=== PATIENT | male | born 1960 | race Two or more races ===

== ENCOUNTER 2018-12-13 19:52 | Emergency (ER) | payer SELFPAY ==
[~2018-12-13] VITALS: Ht 167.6 cm; Wt 77.1 kg
[2018-12-13 21:00] VITALS: BP 143/88
--- NOTE | 2018-12-13 21:00 | NUR ---
ED Nurse Note: patient walked in ED c/o furuncul on his left buttocks. AAO x4, VSS at this time.
[2018-12-13] MEDS ORDERED: Bactrim-DS 1 tab ORAL ONE (21:30)
[2018-12-13] MEDS ORDERED: BACTRIM DS TAB1 EAC1 ORAL (21:37)
[2018-12-13] MEDS ORDERED: MUPIROCIN22 GM TOPIC (21:37)
--- NOTE | 2018-12-13 21:37 | Emergency Room Report ---
History of Present Illness General Chief Complaint: Skin Rash/Abscess Source: Patient, Medical Record Present Illness HPI Is a 58-year-old male with a history of hypertension diabetes. He presents with chief complaint of bug bite. He has an abscess to his left upper hip area. Onset for last 2 days. He tried squeezing it. Now with tenderness and low-grade fever. No nausea no vomiting no fever chills. Worse with palpation. No active drainage. Allergies: Coded Allergies: No Known Allergies (Unverified , 07/04/15) Patient History Past Medical History: see triage record, old chart reviewed, DM, HTN Past Surgical History: other Pertinent Family History: none Social History: Denies: smoking Immunizations: other Reviewed Nursing Documentation: PMH: Agreed; PSxH: Agreed Nursing Documentation-PMH Hx Hypertension: Yes Hx Diabetes: Yes Review of Systems Eye: Denies: eye pain, blurred vision ENT: Denies: ear pain, nose congestion, throat swelling Respiratory: Denies: cough, shortness of breath Cardiovascular: Denies: chest pain, palpitations Gastrointestinal: Denies: abdominal pain, diarrhea, nausea, vomiting Musculoskeletal: Denies: back pain, joint pain Skin: Denies: rash Neurological: Denies: headache, numbness Endocrine: Denies: increased thirst, increased urine Hematologic/Lymphatic: Denies: easy bruising All Other Systems: negative except mentioned in HPI Physical Exam Vital Signs Date Time Temp Pulse Resp B/P (MAP) Pulse Ox O2 Delivery O2 Flow Rate FiO2 12/13/18 20:43 98.4 84 16 143/88 95 Room Air vitals normal Sp02 EP Interpretation: reviewed, normal General Appearance: well appearing, no apparent distress, alert Head: normocephalic, atraumatic Eyes: bilateral eye PERRL, bilateral eye EOMI ENT: hearing grossly normal, normal pharynx Neck: full range of motion, supple, no meningismus Respiratory: chest non-tender, lungs clear, normal breath sounds Cardiovascular #1: regular rate, rhythm, no murmur Gastrointestinal: normal bowel sounds, non tender, no mass, no organomegaly, no bruit, non-distended Musculoskeletal: back normal, gait/station normal, normal range of motion Psychiatric: mood/affect normal Skin: warm/dry, other - Left hip: Indurated area of 3 cm with erythema. Central area of necrosis and eschar. Procedures Incision and Drainage Incision and Drainage : Consent: Verbal Site: left hip Blade Size: 11 I & D Procedure: betadine prep, sterile drapes applied Wound Location: lower extremity Anesthesia: 1% Lidocaine Volume Anesthetic (ccs): 3 Patient Tolerated: Well Complications: None Progress I made a 1 cm incision. small amount of purulent discharge expressed. loculated area broken up. pt tolerated procedure w/o problems. Medical Decision Making Diagnostic Impression: Primary Impression: Abscess of hip, left ER Course Patient with a superficial abscess. No evidence of deep infection or systemic spread. We'll discharge home. Last Vital Signs Date Time Temp Pulse Resp B/P (MAP) Pulse Ox O2 Delivery O2 Flow Rate FiO2 12/13/18 20:43 98.4 84 16 143/88 95 Room Air Status: improved Disposition: HOME, SELF-CARE Condition: Stable Scripts Mupirocin* (MUPIROCIN*) 22 Gm Oint...g. 1 APPLIC TOPIC THREE TIMES A DAY, #22 GM Prov: Theo Arceo MD 12/13/18 Trimethoprim/Sulfamethoxazole 160/800* (BACTRIM DS TABLET*) 1 Each Tablet 1 TAB ORAL Q12H, #14 TAB 0 Refills Prov: Theo Arceo MD 12/13/18 Referrals: NON PHYSICIAN (PCP) Patient Instructions: Abscess Additional Instructions: follow-up your doctor in 7 days. Return if worse. Theo Arceo MD Dec 13, 2018 21:37
[2018-12-13 21:44] VITALS: BP 143/88
--- NOTE | 2018-12-13 21:45 | NUR ---
ED Nurse Note: Pt cleared by health care Provider for discharge. DC instructions/prescription was given and explained to pt and verbalized understanding of teachings. All medical deviecs such as ID band removed. Pt is AAO x4, ambulatory and left with all personal belongings.
== END 2018-12-13 21:20 | disposition home or self-care (01) ==
LOC: EMR 21:18
DX: L02.416 Cutaneous abscess of left lower limb (principal); E11.9 Type 2 diabetes mellitus without complications; I10 Essential (primary) hypertension
CPT/HCPCS: 10060; 99282

== ENCOUNTER 2020-11-01 21:48 | Emergency (ER) | payer OTHER ==
[~2020-11-01] VITALS: Ht 177.8 cm; Wt 77.1 kg
[~2020-11-01 21:48] MED LIST: BACTRIM DS TAB1 EAC1 ORAL; MUPIROCIN22 GM TOPIC
[2020-11-01 22:01] VITALS: BP 150/79
--- NOTE | 2020-11-01 22:09 | Emergency Room Report ---
History of Present Illness General Chief Complaint: Back Pain-No Injury Source: Patient Present Illness HPI Patient is a 59-year-old male who presents for increased mid back pain. Reports having some chest discomfort associated. Pain is worse with deep breath. Denies any change with exertion. Prior history of type 2 diabetes for which he takes metformin as well as glitazone. Denies any fever. Reports having 1 moderna vaccine. Had previously had a history of hypertension. Denies any prior cardiac disease. Has history of hypertension. Pain is intermittent in nature. 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: No Patient History Past Medical History: see triage record Reviewed Nursing Documentation: PMH: Agreed; PSxH: Agreed Nursing Documentation-PMH Hx Hypertension: Yes Hx Diabetes: Yes Review of Systems All Other Systems: negative except mentioned in HPI Physical Exam Vital Signs Date Time Temp Pulse Resp B/P (MAP) Pulse Ox O2 Delivery O2 Flow Rate FiO2 11/01/20 21:55 97.9 74 16 150/79 (102) 96 Room Air Sp02 EP Interpretation: reviewed, normal General Appearance: normal inspection, well appearing, no apparent distress, alert, GCS 15, non-toxic Head: atraumatic ENT: normal ENT inspection, hearing grossly normal, normal voice Neck: normal inspection, full range of motion, supple, no bony tend Respiratory: normal inspection, lungs clear, normal breath sounds, no respiratory distress, no retraction, no wheezing Cardiovascular #1: regular rate, rhythm, no edema Gastrointestinal: normal inspection, normal bowel sounds, non tender, soft, no guarding, no hernia Genitourinary: no CVA tenderness Musculoskeletal: normal inspection, back normal, normal range of motion Neurologic: alert, motor strength/tone normal, instrument mechanic weapons system III-XII nml as tested, oriented x3, responsive, speech normal, normal inspection Psychiatric: normal inspection, judgement/insight normal, mood/affect normal Medical Decision Making Diagnostic Impression: Primary Impression: Chest pain ER Course Patient presents for chest pain. Differential diagnosis include was not limited to pneumonia, coronavirus infection, unstable angina among others. Because of complexity of patient's case laboratory tests and imaging studies were ordered.Patient's laboratory testing showed minimally elevated white blood count. CT imaging was ordered to patient's chest discomfort. CT imaging read by radiology showed EKG Diagnostic Results Rate: normal Rhythm: NSR ST Segments: other - Patient's EKG interpreted by me showed normal sinus rhythm with a rate of [address] or T wave changes noted. Last Vital Signs Date Time Temp Pulse Resp B/P (MAP) Pulse Ox O2 Delivery O2 Flow Rate FiO2 11/01/20 22:01 97.9 16 150/79 96 Room Air 11/01/20 21:55 74 Status: improved Disposition: HOME, SELF-CARE Condition: Stable Louie Castellanos MD Nov 01, 2020 22:09
[2020-11-01] MEDS ORDERED: Aspirin Baby 81mg ORAL ONE (22:15)
[2020-11-01] MEDS ORDERED: Omnipaque-300 100ml vial INJ ONE (22:15)
--- NOTE | 2020-11-01 22:28 | NUR ---
ED Nurse Note: Pt came in ambulatory complaints of back pain radiating to chest, blood specimen sent to lab R AC 20G placed
[2020-11-01 22:41] LABS: EOSINOPHILS % (AUTO) 1.2 % (0.0-3.0); HEMATOCRIT 42.9 % (42.0-52.0); HEMOGLOBIN 13.6 G/DL (14.2-18.0); MEAN CORPUSCULAR VOLUME 93 FL (80-99); MONOCYTES % (AUTO) 6.7 % (1.0-10.0); NEUTROPHILS % (AUTO) 49.1 % (45.0-75.0); PLATELET COUNT 244 K/UL (150-450); RED BLOOD COUNT 4.59 M/UL (4.70-6.10); RED CELL DISTRIBUTION WIDTH 12.6 % (11.6-14.8); WHITE BLOOD COUNT 10.9 K/UL (4.8-10.8)
--- NOTE | 2020-11-01 22:54 | NUR ---
ED Nurse Note: COVID specimen sent to lab
[2020-11-01 22:59] LABS: CALCIUM 9.3 MG/DL (8.5-10.1); CREATININE 1.3 MG/DL (0.55-1.30); POTASSIUM 4.2 MMOL/L (3.5-5.1)
[2020-11-01 23:10] LABS: ALBUMIN 3.8 G/DL (3.4-5.0); ALBUMIN/GLOBULIN RATIO 1.1 (1.0-2.7); BILIRUBIN,TOTAL 0.3 MG/DL (0.2-1.0)
[2020-11-01] MEDS ORDERED: Lidocaine 2% Visc 15ml soln ORAL ONE (23:15)
[2020-11-01] MEDS ORDERED: Dicyclomine HCl 10mg/5ml oral soln ORAL ONE (23:15)
[2020-11-02] MEDS ORDERED: FAMOTIDINE20 MG ORAL (01:49)
[2020-11-02] MEDS ORDERED: HYDROCODON-ACE1 EA15 ORAL (01:49)
--- NOTE | 2020-11-02 01:56 | Diagnostic Imaging Report ---
EXAM: CT Chest With Intravenous Contrast CLINICAL HISTORY: CP TECHNIQUE: Axial computed tomography images of the chest with intravenous contrast. CTDI is 54 mGy and DLP is 1001 mGy-cm. One or more of the following dose reduction techniques were used: automated exposure control, adjustment of the mA and/or kV according to patient size, use of iterative reconstruction technique. COMPARISON: No relevant prior studies available. FINDINGS: Lungs: Small posterior right upper lobe dependent atelectasis. Pleural space: Unremarkable. No pneumothorax. No significant effusion. Heart: Unremarkable. No cardiomegaly. No significant pericardial effusion. Bones/joints: Osteopenia and degenerative spine findings. No acute fracture. No dislocation. Soft tissues: Unremarkable. Vasculature: Unremarkable. No thoracic aortic aneurysm. Lymph nodes: Unremarkable. No enlarged lymph nodes. Other findings: Otherwise no acute abnormality. IMPRESSION: 1. No acute abnormality. 2. Small posterior right upper lobe dependent atelectasis. 3. Osteopenia and degenerative spine findings. 4. Otherwise unremarkable study. EXAM: CT Abdomen and Pelvis With Intravenous Contrast CLINICAL HISTORY: CP TECHNIQUE: Axial computed tomography images of the abdomen and pelvis with intravenous contrast. CTDI is 54 mGy and DLP is 1001 mGy-cm. One or more of the following dose reduction techniques were used: automated exposure control, adjustment of the mA and/or kV according to patient size, use of iterative reconstruction technique. Coronal and sagittal reformatted images were created and reviewed. COMPARISON: No relevant prior studies available. FINDINGS: Lung bases: Unremarkable. No mass. No consolidation. ABDOMEN: Liver: Unremarkable. No mass. Gallbladder and bile ducts: Unremarkable. No calcified stones. No ductal dilation. Pancreas: Unremarkable. No mass. No ductal dilation. Spleen: Unremarkable. No splenomegaly. Adrenals: Unremarkable. No mass. Kidneys and ureters: Unremarkable. No solid mass. No hydronephrosis. Stomach and bowel: Colonic diverticulosis without acute diverticulitis. Prominent colonic stool burden could be causing pain. No obstruction. PELVIS: Appendix: No findings to suggest acute appendicitis. Bladder: Unremarkable. No mass. Reproductive: Unremarkable as visualized. ABDOMEN and PELVIS: Intraperitoneal space: Unremarkable. No free air. No significant fluid collection. Bones/joints: Osteopenia and degenerative spine findings. No acute fracture. No dislocation. Soft tissues: Unremarkable. Vasculature: Atherosclerotic vascular disease. No abdominal aortic aneurysm. Lymph nodes: Unremarkable. No enlarged lymph nodes. IMPRESSION: 1. No acute abnormality. 2. Prominent colonic stool burden could be causing pain. 3. Colonic diverticulosis without acute diverticulitis. 4. Osteopenia and degenerative spine findings. 5. Otherwise unremarkable study.
[2020-11-02 02:04] VITALS: BP 138/68
--- NOTE | 2020-11-02 02:05 | NUR ---
ER DISCHARGE NOTE: Patient is cleared to be discharged per ERMD, pt is aox4, on room air, with stable vital signs. pt was given dc and prescription instructions, pt was able to verbalize understanding, pt id band and iv site removed without complications. pt is able to ambulate with steady gait. pt took all belongings.
[2020-11-02] MEDS ORDERED: ASPIRIN325 MG ORAL (02:07)
[2020-11-02 02:15] VITALS: BP 130/66
--- NOTE | 2020-11-02 13:50 | Diagnostic Imaging Report ---
Procedure: XRAY Chest 1v Reason for study: Chest pain Comparison films: 07/04/2015. FINDINGS: A single one view chest is obtained. Vascularity is normal. The lung boss are clear bilaterally. Cardiac and mediastinal silhouette are within normal limits. CP angles are sharp. The bony thorax appear unremarkable. IMPRESSION: NO ACUTE CARDIOPULMONARY DISEASE.
--- NOTE | 2020-11-05 14:14 | Cardiology Report ---
APPROVED REPORT EKG Measurement Heart [id number] <Conclusion> Normal sinus rhythm Normal ECG
== END 2020-11-02 02:15 | disposition home or self-care (01) ==
LOC: EMR 22:05
DX: R07.9 Chest pain, unspecified (principal); M54.9 Dorsalgia, unspecified; E11.9 Type 2 diabetes mellitus without complications; I10 Essential (primary) hypertension; Z79.84 Long term (current) use of oral hypoglycemic drugs
CPT/HCPCS: 36415; 71045; 71260; 74177; 80053; 83690; 83880; 84484; 85025; 85379; 85610; 85730; 93005; 96374; 99284; Q9965; S0028